=== PATIENT | male | born 1980 | race African-American/Black ===

== ENCOUNTER 2017-03-10 20:03 | Emergency (ER) | payer OTHER ==
[~2017-03-10] VITALS: Ht 180.3 cm; Wt 80.3 kg
[~2017-03-10 20:03] MED LIST: CITA20TA4 PO; DICY10SO PO; FISH1000 PO; FLUTISP; GLUC1CAP10 PO; HYDR10T PO; MELA0.02 PO; VITA1CAP7 PO; ZOLO50TA PO; ZOMI2.5T4 PO
[2017-03-10] MEDS ORDERED: LEXA1TAB PO (20:34)
[2017-03-10] MEDS ORDERED: traMADol 50 MG TAB PO ONE (23:30)
[2017-03-10 23:40] VITALS: BP 162/94
== END 2017-03-10 23:42 | disposition home or self-care (01) ==
LOC: M ED 21:46
DX: M72.2 Plantar fascial fibromatosis (principal); Z79.899 Other long term (current) drug therapy; Z88.5 Allergy status to narcotic agent; Z88.8 Allergy status to other drugs, medicaments and biological substances

== ENCOUNTER → 2017-05-23 | Outpatient (CLI) | payer OTHER ==
[~2017-05-23] MED LIST changes: +HYDR-643 PO; -HYDR10T PO; +LEXA1TAB PO; -MELA0.02 PO; +MELA3TAB49 PO
--- NOTE | 2017-05-23 16:28 | REP ---
MRI right foot without and with IV gadolinium: History: Right foot lesion. Right foot pain, plantar lesion. No comparison radiographs are available. Gadolinium enhancement dose: 15 mL of intravenous ProHance. Technique: Sagittal axial and coronal imaging planes utilized. T1 and T2-weighted scans were obtained with without fat saturation. Findings: Cortical and medullary bone signal intensity are normal and T1 and T2-weighted scans. Plantar fascia are smooth. No soft tissue mass is appreciated. No evidence of flexion tendinopathy seen. No abnormal fluid collection is appreciated. Postcontrast imaging shows no abnormal gadolinium enhancement. Impression: Unremarkable MRI study of the right foot without and with IV gadolinium. Signed by Dominic Johnson MD 05/23/2017 05:22 P
== END ==
LOC: M RAD 14:16
PROVIDERS: ATTEND Podiatrist
DX: G57.61 Lesion of plantar nerve, right lower limb (principal)
CPT/HCPCS: 73720; A9576